=== PATIENT | male | born 1950 | race Caucasian/White ===

== ENCOUNTER 2019-01-16 04:04 | Emergency (ER) | payer OTHER, MEDICARE ==
[2019-01-16] MEDS ORDERED: DIPHENHYDRAMINE HCL 50 MG/ML VIAL ONE (04:21)
[2019-01-16] MEDS ORDERED: EPINEPHRINE INJ/PF 1 MG/1 ML AMPULE ONE ×2 (04:21→04:39)
[2019-01-16] MEDS ORDERED: FAMOTIDINE INJ/PF 20 MG/2 ML SDV IV ONE ×2 (04:21→06:00)
[2019-01-16] MEDS: METHYLPREDNISOLONE INJ 125 MG/2 ML SDV ONE ×2 (04:22→06:19)
[2019-01-16] MEDS: TRANEXAMIC ACID INJ/PF 1,000 MG/10 ML SDV IV ONE ×2 (04:25→06:19)
[2019-01-16] MEDS ORDERED: PROPOFOL 1,000 MG/100 ML INFUS..BTL IV ONE (04:42)
[2019-01-16] MEDS ORDERED: MIDAZOLAM 2 MG/2 ML INJ ONE (04:54)
[2019-01-16] MEDS ORDERED: KETAMINE HCL INJ 500 MG/10 ML VIAL ONE (05:37)
[2019-01-16] MEDS ORDERED: ETOMIDATE INJ/PF 20 MG/10 ML SDV IV ONE (05:37)
--- NOTE | 2019-01-16 05:41 | ER Document Report ---
ED General - General Chief Complaint: Allergic Reaction Stated Complaint: POSSIBLE ALLERGIC REACTION Time Seen by Provider: 01/16/19 05:00 Mode of Arrival: Ambulatory Information source: Patient, Relative, [facility] Records Notes: 68-year-old male with coronary artery disease, diabetes, hypertension (on lisinopril), hyperlipidemia presents via private vehicle from home with complaint of tongue swelling, difficulty swallowing. Patient reports using all of oil and Aurelia for lubrication for sex earlier today which is his only new exposure. Patient reports taking himself off of his lisinopril 4 days ago. - HPI Onset: This evening Onset/Duration: Gradual, Persistent Quality of pain: Burning - Burning pain under the tongue Severity: Mild Pain Level: 2 Associated symptoms: denies: Chest pain, Chills, Fever, Hurts to breath, Nausea, Shortness of breath, Sweating, Weakness Exacerbated by: Denies Relieved by: Denies Similar symptoms previously: No Recently seen / treated by doctor: No - Related Data Allergies/Adverse Reactions: iodine Allergy (Verified 01/16/19 06:28) Past Medical History - General Information source: Patient, Relative - Social History Smoking Status: Current Every Day Smoker Cigarette use (# per day): Yes - 30 Smoking Education Provided: Yes - Smoking cessation counseling was provided for 4 minutes at the bedside Frequency of alcohol use: Occasional Drug Abuse: None Lives with: Spouse/Significant other Family History: Reviewed & Not Pertinent Patient has suicidal ideation: No Patient has homicidal ideation: No - Past Medical History Cardiac Medical History: Reports: Hx Coronary Artery Disease, Hx Hypercholesterolemia, Hx Hypertension Endocrine Medical History: Reports: Hx Diabetes Mellitus Type 2 Review of Systems - Review of Systems Notes: REVIEW OF SYSTEMS: CONSTITUTIONAL : Denies fever, chills, or sweats. Denies recent illness. Denies weight loss, recent hospitalizations. EENT: Denies visual changes, eye pain. Denies sore throat, oral lesions, + difficulty swallowing. CARDIOVASCULAR: Denies chest pain. Denies palpitations. Denies lower extremity edema. RESPIRATORY: Denies cough. Denies shortness of breath, wheezing. GASTROINTESTINAL: Denies abdominal pain or distention. Denies nausea, vomiting, or diarrhea. Denies blood in vomitus, stools, or per rectum. Denies black, tarry stools. Denies constipation. GENITOURINARY: Denies difficulty urinating, painful urination, frequency, blood in urine, testicular pain or penile discharge. MUSCULOSKELETAL: Denies back or neck pain or stiffness. Denies joint pain or swelling. SKIN: Denies rash, lesions or sores. HEMATOLOGIC : Denies easy bruising or bleeding. LYMPHATIC: Denies swollen glands. NEUROLOGICAL: Denies confusion or altered mental status. Denies loss of consciousness. Denies dizziness or lightheadedness. Denies headache. Denies weakness or paralysis. Denies problems difficulty with ambulation, slurred speech. Denies sensory loss, numbness, or tingling. Denies seizures. PSYCHIATRIC: Denies anxiety or stress. Denies depression, suicidal ideation, or Physical Exam - Vital signs Vitals: Temp Pulse Resp BP Pulse Ox 98.4 F 73 19 124/70 95 01/16/19 04:01/16/19 04:11 01/16/19 04:11 01/16/19 04:01/16/19 04:11 - Notes Notes: PHYSICAL EXAMINATION: GENERAL: Well-appearing, well-nourished and in no acute distress. HEAD: Atraumatic, normocephalic. EYES: Pupils equal round and reactive to light, extraocular movements intact, sclera anicteric, conjunctiva are normal. ENT: Nares patent, oropharynx clear without exudates. Moist mucous membranes. Tongue swelling. No lip swelling. Handling secretions. NECK: Normal range of motion, supple without lymphadenopathy. No stridor LUNGS: Breath sounds clear to auscultation bilaterally and equal. No wheezes rales or rhonchi. No increased work of breathing HEART: Regular rate and rhythm without murmurs ABDOMEN: Soft, nontender, nondistended abdomen. No guarding, no rebound. No masses appreciated. Musculoskeletal: Normal range of motion, no pitting or edema. No cyanosis. NEUROLOGICAL: Cranial nerves grossly intact. Normal speech, normal gait. Normal sensory, motor exams PSYCH: Normal mood, normal affect. SKIN: Warm, Dry, normal turgor, no rashes or lesions noted. Course - Re-evaluation Re-evalutation: Temp Pulse Resp BP Pulse Ox 97.1 F 77 28 H 156/65 H 94 01/16/19 05:32 01/16/19 05:32 01/16/19 05:32 01/16/19 05:32 01/16/19 05:32 01/16/19 05:37 68-year-old male presents with lip swelling that occurred just prior to arrival. Patient reports a new exposure to Aurelia and all of oil which he used for sex earlier today. Patient does take lisinopril for his hypertension but reports that he stopped taking it 4 days ago because his blood pressure has been running low. Patient has had prior similar symptoms after eating fish. Vital signs reviewed upon arrival and patient is mildly hypertensive but afebrile and not hypoxic. Patient is handling secretions, has no increased work of breathing, wheezing or stridor. Patient did receive 3 doses of 0.3 mg of IM epinephrine as well as Benadryl, Solu-Medrol, Pepcid, TXA, FFP. Anesthesia was consulted as they have expressed their desire to be involved with angioedema cases. Dr. Michael is at the bedside and does not recommend intubation at this time. Patient reports that his difficulty swallowing has improved. Tongue swelling has impro gladys. 01/16/19 05:42 Patient resting comfortably on nasal cannula. 01/17/19 16:03 Patient signed out to Dr. Villa oncoming physician with plan to observe the patient in the emergency department for a total of 6 hours and discharge if no further swelling is noted. We have decided to do this due to the patient's rapid improvement after medication, and no ICU or IMCU bed availability. - Vital Signs Vital signs: Temp Pulse Resp BP Pulse Ox 97.1 F 77 25 H 152/87 H 95 01/16/19 05:32 01/16/19 05:32 01/16/19 10:31 01/16/19 10:31 01/16/19 10:31 Discharge - Discharge Clinical Impression: Angioedema Qualifiers: Encounter type: initial encounter Qualified Code(s): T78.3XXA - Angioneurotic edema, initial encounter Condition: Good Disposition: HOME, SELF-CARE Instructions: Angioedema ([facility]) Additional Instructions: Discontinue your lisinopril. Discontinue your Bactrim and inform your prescribing physician about your tongue swelling. Follow up with your -80 hours for further care or return to the ED IMMEDIATELY if symptoms worsen or you have any concerns. If you cannot afford to follow up with your primary care physician a list of low cost clinics have been provided at the end of your discharge papers as well. Most prescribed medications have multiple side effects. The safest thing to do is when filling your prescription speak to your pharmacist regarding possible interactions with your normal home medications and over the counter medications such as Ibuprofen, Tylenol, Benadryl. If you experience any symptoms that cause you discomfort or concern you should discontinue the medication immediately and return to the emergency room or call your primary care physician. Prescriptions: Epinephrine [Epipen 2-Jacques] 0.3 mg IJ ONCEP PRN #2 auto.injct PRN Reason: Forms: Elevated Blood Pressure, Smoking Cessation Education
[2019-01-16] MEDS ORDERED: DIPHENHYDRAMINE HCL 50 MG/ML VIAL IV ONE (06:00)
[2019-01-16] MEDS ORDERED: MIDAZOLAM 2 MG/2 ML INJ IV ONE (06:00)
[2019-01-16] MEDS ORDERED: METHYLPREDNISOLONE INJ 125 MG/2 ML SDV IV ONE (06:00)
[2019-01-16] MEDS ORDERED: TRANEXAMIC ACID INJ/PF 1,000 MG/10 ML SDV IV ONE (06:02)
[2019-01-16] MEDS ORDERED: EPINEPHRINE INJ/PF 1 MG/1 ML AMPULE IM ONE ×3 (06:02→06:04)
--- NOTE | 2019-01-16 07:01 | ER Document Report ---
ED Medical Screen (RME) - General Chief Complaint: Allergic Reaction Stated Complaint: POSSIBLE ALLERGIC REACTION Time Seen by Provider: 01/16/19 05:00 Mode of Arrival: Ambulatory - Related Data Allergies/Adverse Reactions: iodine Allergy (Verified 01/16/19 06:28) Past Medical History - Social History Cigarette use (# per day): Yes - 30 Frequency of alcohol use: Occasional Drug Abuse: None - Past Medical History Cardiac Medical History: Reports: Hx Coronary Artery Disease, Hx Hypercholesterolemia, Hx Hypertension Endocrine Medical History: Reports: Hx Diabetes Mellitus Type 2 Renal/ Medical History: Denies: Hx Peritoneal Dialysis Physical Exam - Vital signs Vitals: Temp Pulse Resp BP Pulse Ox 98.4 F 73 19 124/70 95 01/16/19 04:11 01/16/19 04:11 01/16/19 04:11 01/16/19 04:11 01/16/19 04:11 Course - Re-evaluation Re-evalutation: 01/16/19 07:00 Patient handed off by Dr. Huff. Isolated tongue angioedema, asymmetric. Seen by anesthesia and observed for 2 hours thus far with full complement of medications administered including TXA and FFP and epinephrine. Plan is to observe for a total of 6 hours in the emergency department, and discharge if no worsening symptoms. On my evaluation at 6:30 AM the patient is awake alert, his tongue swelling has improved he is able to swallow and breathe normally. - Vital Signs Vital signs: Temp Pulse Resp BP Pulse Ox 97.1 F 77 24 H 137/70 H 95 01/16/19 05:32 01/16/19 05:32 01/16/19 08:31 01/16/19 08:31 01/16/19 08:31 Doctor's Discharge - Discharge Clinical Impression: Angioedema Qualifiers: Encounter type: initial encounter Qualified Code(s): T78.3XXA - Angioneurotic edema, initial encounter Condition: Good Instructions: Angioedema ([facility]) Additional Instructions: Discontinue your lisinopril. Discontinue your Bactrim and inform your prescribing physician about your tongue swelling. Follow up with your [id number] hours for further care or return to the ED IMMEDIATELY if symptoms worsen or you have any concerns. If you cannot afford to follow up with your primary care physician a list of low cost clinics have been provided at the end of your discharge papers as well. Most prescribed medications have multiple side effects. The safest thing to do is when filling your prescription speak to your pharmacist regarding possible interactions with your normal home medications and over the counter medications such as Ibuprofen, Tylenol, Benadryl. If you experience any symptoms that cause you discomfort or concern you should discontinue the medication immediately and return to the emergency room or call your primary care physician. Prescriptions: Epinephrine [Epipen 2-Jacques] 0.3 mg IJ ONCEP PRN #2 auto.injct PRN Reason: Forms: Elevated Blood Pressure, Smoking Cessation Education
[2019-01-16 10:58] VITALS: BP 152/87
== END 2019-01-16 10:58 | disposition home or self-care (01) ==
LOC: ER 04:04
DX: T78.3XXA Angioneurotic edema, initial encounter (principal); R22.0 Localized swelling, mass and lump, head; R13.10 Dysphagia, unspecified; E11.9 Type 2 diabetes mellitus without complications; I25.10 Atherosclerotic heart disease of native coronary artery without angina pectoris; I10 Essential (primary) hypertension; T46.4X6A Underdosing of angiotensin-converting-enzyme inhibitors, initial encounter; Z91.128 Patient's intentional underdosing of medication regimen for other reason; Z91.14 Patient's other noncompliance with medication regimen; F17.210 Nicotine dependence, cigarettes, uncomplicated; Z71.6 Tobacco abuse counseling
CPT/HCPCS: 99285; 96372; 96374; 96375; 86900; 86901; 36415; 36430; P9017; J2250; J1200; J0171; J2930; S0028; J3490

== ENCOUNTER 2019-03-13 08:21 | Day surgery (SDC) | payer OTHER, MEDICARE ==
[~2019-03-13 08:21] MED LIST: PROPOFOL INJ 200 MG/20 ML VIAL IV ONE
[2019-03-13 10:29] VITALS: BP 121/86
--- NOTE | 2019-03-13 14:19 | Operative Report ---
Operative Report DATE OF SURGERY: 03/13/19 Operative Report: The risks, benefits and alternatives of the procedure including the risk of bleeding, perforation requiring surgery have been explained to the patient in detail and informed consent has been obtained. Patient is placed in a left, lateral decubital position. Timeout was called. Propofol medication is administered. Rectal examination is done which did not reveal any masses, tears or fissures. An Olympus videoscope was introduced into the patient's rectum. The scope was then carefully advanced all the way to the cecum. The cecum was identified by the usual anatomical landmarks including the ileocecal valve as well as the appendiceal office. Photodocumentation is obtained. Scope was then sequentially pulled back via the various segments of the colon including the ascending colon, hepatic flexure, transverse colon, splenic flexure, descending colon finding to the rectosigmoid portions of the colon. Retroflexion maneuvers performed. PREOPERATIVE DIAGNOSIS: Personal history of polyp POSTOPERATIVE DIAGNOSIS: Colon polyp removed via snare polypectomy and retrieved OPERATION: Colonoscopy with snare polypectomy SURGEON: GABRIEL HUDSON ANESTHESIA: LMAC TISSUE REMOVED OR ALTERED: As noted above. COMPLICATIONS: None. ESTIMATED BLOOD LOSS: None. INTRAOPERATIVE FINDINGS: As noted above. PROCEDURE: Patient tolerated the procedure well. No immediate postprocedure complications are noted. Patient is discharged in good condition. Discharge date 03/13/2019. Discharge diet: Regular. Discharge activity: Regular. 2 to 3-week follow-up to discuss findings. 5-year surveillance colonoscopy. Patient is instructed to call the office or proceed to the emergency room should there be any further problems or questions. Wait on the pathology.
== END 2019-03-13 10:57 | disposition home or self-care (01) ==
LOC: END 08:21
PROVIDERS: ATTEND Internal Medicine Gastroenterology
DX: K63.5 Polyp of colon (principal); Z86.010 Personal history of colon polyps; J44.9 Chronic obstructive pulmonary disease, unspecified; I10 Essential (primary) hypertension; E11.9 Type 2 diabetes mellitus without complications; E66.9 Obesity, unspecified; Z68.32 Body mass index [BMI] 32.0-32.9, adult
CPT/HCPCS: 45385; 82962; 88305 ×2; J2704; 811

== ENCOUNTER 2019-10-03 13:22 | Emergency (ER) | payer OTHER, MEDICARE ==
[2019-10-03] MEDS ORDERED: CEFAZOLIN 1 GM/D5W RTU 1 GM/50 ML RTUPB IV ONE (13:32)
[2019-10-03] MEDS ORDERED: FENTANYL CITRATE INJ/PF 100 MCG/2 ML AMPUL IV ONE (13:33)
--- NOTE | 2019-10-03 13:35 | ER Document Report ---
ED Medical Screen (RME) - General Chief Complaint: Laceration Stated Complaint: FINGER LACERATION Time Seen by Provider: 10/03/19 13:25 Mode of Arrival: Wheelchair Information source: Patient Notes: Patient was using a table saw prior to arrival in a board got caught. 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 Patient reports a history of diabetes hypertension and neuropathy. Patient does not take any medications at this time. Patient does report tetanus immunization is currently up-to-date. I have greeted and performed a rapid initial assessment of this patient. A comprehensive ED assessment and evaluation of the patient, analysis of test results and completion of the medical decision making process will be conducted by additional ED providers. TRAVEL OUTSIDE OF THE [place] IN LAST 30 DAYS: No - Related Data Allergies/Adverse Reactions: iodine Allergy (Verified 03/13/19 08:33) Past Medical History - Social History Chew tobacco use (# tins/day): No Frequency of alcohol use: None Drug Abuse: None - Past Medical History Cardiac Medical History: Reports: Hx Hypercholesterolemia, Hx Hypertension Denies: Hx Coronary Artery Disease, Hx Heart Attack Pulmonary Medical History: Reports: Hx Asthma - PRN INHALER Denies: Hx Bronchitis, Hx COPD, Hx Pneumonia Neurological Medical History: Denies: Hx Cerebrovascular Accident, Hx Seizures Endocrine Medical History: Reports: Hx Diabetes Mellitus Type 2 Renal/ Medical History: Denies: Hx Peritoneal Dialysis Musculoskeltal Medical History: Denies Hx Arthritis - Immunizations Hx Diphtheria, Pertussis, Tetanus Vaccination: Yes Physical Exam - Vital signs Vitals: Temp Pulse Resp BP Pulse Ox 98.6 F 75 18 174/88 H 97 10/03/19 13:27 10/03/19 13:27 10/03/19 13:27 10/03/19 13:27 10/03/19 13:27 - General General appearance: Alert Notes: 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 Bleeding controlled. Course - Vital Signs Vital signs: Temp Pulse Resp BP Pulse Ox 98.6 F 75 18 174/88 H 97 10/03/19 13:27 10/03/19 13:27 10/03/19 13:27 10/03/19 13:27 10/03/19 13:27
--- NOTE | 2019-10-03 13:59 | RADIOLOGY REPORT (SQ) ---
EXAM DESCRIPTION: HAND LEFT 3 VIEWS IMAGES COMPLETED DATE/TIME: 10/03/2019 1:50 pm REASON FOR STUDY: table saw injury, Near amp L 3 finger, lac 4/5 fin COMPARISON: None. EXAM PARAMETERS: NUMBER OF VIEWS: Three views. TECHNIQUE: AP, lateral and oblique radiographic images acquired of the left hand. LIMITATIONS: None. FINDINGS: MINERALIZATION: Normal. BONES: There is a comminuted fracture involving the the distal phalanx of the 3rd digit and middle ph alanx. Injury extends through the joint itself. The distal phalanx and distal aspect of the middle phalanx are displaced inferiorly and slightly laterally. JOINTS: No effusions. SOFT TISSUES: No soft tissue swelling. No foreign body. OTHER: No other significant finding. IMPRESSION: Probable compound, comminuted fracture involving the distal phalanx of the 3rd digit as well as the middle phalanx with dislocation of the DIP as described. TECHNICAL DOCUMENTATION: JOB ID: [id number] 2010 [employer]- All Rights Reserved Reading location - IP/workstation name: [email or web address]
--- NOTE | 2019-10-03 14:42 | ER Document Report ---
Entered by KONG YOUNG SCRIBE 10/03/19 1411 Acting as scribe for:KHURRAM MURILLO DO ED General - General Chief Complaint: Laceration Stated Complaint: FINGER LACERATION Time Seen by Provider: 10/03/19 13:25 Primary Care Provider: CYNTHIA,KAEL [Primary Care Provider] - Follow up as needed Mode of Arrival: Wheelchair Information source: Patient Notes: This 69-year-old male presents to the emergency department after a finger laceration that happened this morning. Patient explains that he was using a table saw and accidentally cut his fingers. Patient cut his 2nd and 3rd digit on his left hand. Patient is right-handed and his last tetanus shot was 8 months ago. TRAVEL OUTSIDE OF THE [place] IN LAST 30 DAYS: No - Related Data Allergies/Adverse Reactions: iodine Allergy (Verified 03/13/19 08:33) Past Medical History - General Information source: Patient - Social History Smoking Status: Never Smoker Cigarette use (# per day): No Chew tobacco use (# tins/day): No Frequency of alcohol use: None Drug Abuse: None Lives with: Family Family History: Reviewed & Not Pertinent Patient has suicidal ideation: No Patient has homicidal ideation: No - Past Medical History Cardiac Medical History: Reports: Hx Hypercholesterolemia, Hx Hypertension Pulmonary Medical History: Reports: Hx Asthma - PRN INHALER Endocrine Medical History: Reports: Hx Diabetes Mellitus Type 2 Psychiatric Medical History: Reports: Hx Bipolar Disorder, Hx Post Traumatic Stress Disorder Surgical Hx: Negative - Immunizations Hx Diphtheria, Pertussis, Tetanus Vaccination: Yes Review of Systems - Review of Systems Constitutional: No symptoms reported EENT: No symptoms reported Cardiovascular: No symptoms reported Respiratory: No symptoms reported Gastrointestinal: No symptoms reported Genitourinary: No symptoms reported Male Genitourinary: No symptoms reported Musculoskeletal: See HPI, Other - second and third on left hand pain Skin: See HPI, Other - Laceration Hematologic/Lymphatic: No symptoms reported Neurological/Psychological: No symptoms reported -: Yes All other systems reviewed and negative Physical Exam - Vital signs Vitals: Temp Pulse Resp BP Pulse Ox 98.6 F 75 18 174/88 H 97 10/03/19 13:27 10/03/19 13:27 10/03/19 13:27 10/03/19 13:27 10/03/19 13:27 - Notes Notes: Physical Exam: General: Alert, appears well. HEENT: Normocephalic. Atraumatic. PERRL. Extraocular movements intact. Oropharynx clear. Neck: Supple. Non-tender. Respiratory: No respiratory distress. Clear and equal breath sounds bilaterally. Cardiovascular: Regular rate and rhythm. Abdominal: Normal Inspection. Non-tender. No distension. Normal Bowel Sounds. Back: No gross abnormalities. Extremities: Moves all four extremities. Upper extremities: Superficial cut on the dorsal surface of 4th and fifth finger. Transverse deep partially amputated injury across his dorsal surface of his middle phalanx on his left hand. Tip still has good color and sensation is still in tact. Lower extremities: Normal inspection. No edema. Normal ROM. Neurological: Normal cognition. AAOx4. Normal speech. Psychological: Normal affect. Normal Mood. Skin: Warm. Dry. Normal color. Course - Re-evaluation Re-evalutation: 10/03/19 15:09 MDM 69 year old male with PTSD and bipolar disorder, dm is here after injury by table saw a short time ago. Tetanus is up to date. Given ancef and analgesia here and I have discussed with Dr. Fletcher who will see. 10/03/19 15:30 Dr. Fletcher is in the ED evaluating the pt and we have had the pts come to visit with him due to his anxiety. - Vital Signs Vital signs: Temp Pulse Resp BP Pulse Ox 98.6 F 75 18 174/88 H 97 10/03/19 13:27 10/03/19 13:27 10/03/19 13:27 10/03/19 13:27 10/03/19 13:27 Discharge - Discharge Clinical Impression: Open fracture Left hand fracture Qualifiers: Encounter type: initial encounter Fracture type: open Qualified Code(s): S62.92XB - Unspecified fracture of left wrist and hand, initial encounter for open fracture Phalanx, distal fracture of finger Qualifiers: Encounter type: initial encounter Finger: middle finger Fracture type: open Fracture alignment: displaced Laterality: left Qualified Code(s): S62.633B - Displaced fracture of distal phalanx of left middle finger, initial encounter for open fracture Condition: Good Disposition: HOME, SELF-CARE Instructions: Prophylactic Antibiotic ([facility]) Additional Instructions: Follow up with Dr. Fletcher as directed. Call his office and see him next Thursday 10/12 Take your medicine as directed. Please return here for redness, streaking, other problems or other concerns. Prescriptions: Cephalexin Monohydrate [Keflex 500 mg Capsule] 500 mg PO TID #30 capsule Referrals: [facility] [Primary Care Provider] - Follow up as needed EUGENE FLETCHER DO [ACTIVE STAFF] - 10/13/19 I personally performed the services described in the documentation, reviewed and edited the documentation which was dictated to the scribe in my presence, and it accurately records my words and actions.
[2019-10-03] MEDS ORDERED: LIDOCAINE 1%/EPINEPHRINE INJ 20 ML VIAL INJ ONE (14:57)
[2019-10-03] MEDS ORDERED: LIDOCAINE 1% INJ (10 MG/ML) 10 ML MDV INJ ONE (14:57)
[2019-10-03] MEDS ORDERED: MORPHINE SULFATE 10 MG/ML INJ IV ONE (14:57)
[2019-10-03] MEDS ORDERED: ONDANSETRON HCL INJ/PF 4 MG/2 ML SDV IV ONE (14:58)
[2019-10-03] MEDS ORDERED: LORAZEPAM INJ 2 MG/1 ML VIAL IV ONE (15:03)
[2019-10-03] MEDS ORDERED: LIDOCAINE 1% INJ-PF (10 MG/ML) 30 ML SDV ONE (15:30)
[2019-10-03] MEDS ORDERED: HYDROCODONE/ACETAMINOPHEN 5-325 MG (6 TAB/ER DISP) PO PRN (15:36)
--- NOTE | 2019-10-03 16:38 | RADIOLOGY REPORT (SQ) ---
EXAM DESCRIPTION: FINGER LEFT; NO CHG FLUORO IMAGES COMPLETED DATE/TIME: 10/03/2019 3:24 pm REASON FOR STUDY: PERC PINNING 3RD DIGIT COMPARISON: Left hand radiograph same date. FLUOROSCOPY TIME: 2 images saved to PACS. RADIATION DOSE: Total fluoroscopic time 0.7 seconds. TECHNIQUE: Intra-operative images acquired during surgical procedure to evaluate progress. NUMBER OF IMAGES: 2 Total fluoroscopic time 0.7 seconds. LIMITATIONS: None. FINDINGS: Two views of the left 4th digit demonstrate percutaneous pin fixation of the distal and mi ddle phalanx with near anatomic alignment of the fracture fragments. IMPRESSION: IMAGE(S) OBTAINED DURING PROCEDURE. COMMENT: Quality ID [id number]: Final reports for procedures using fluoroscopy that document radiation exp osure indices, or exposure time and number of fluorographic images (if radiation exposure indices are not available) Please consult full operative report of the attending physician for description of the procedure. TECHNICAL DOCUMENTATION: JOB ID: [id number] 2010 [employer]- All Rights Reserved Reading location - IP/workstation name: [email or web address]
--- NOTE | 2019-10-03 16:38 | RADIOLOGY REPORT (SQ) ---
EXAM DESCRIPTION: FINGER LEFT; NO CHG FLUORO IMAGES COMPLETED DATE/TIME: 10/03/2019 3:24 pm REASON FOR STUDY: PERC PINNING 3RD DIGIT COMPARISON: Left hand radiograph same date. FLUOROSCOPY TIME: 2 images saved to PACS. RADIATION DOSE: Total fluoroscopic time 0.7 seconds. TECHNIQUE: Intra-operative images acquired during surgical procedure to evaluate progress. NUMBER OF IMAGES: 2 Total fluoroscopic time 0.7 seconds. LIMITATIONS: None. FINDINGS: Two views of the left 4th digit demonstrate percutaneous pin fixation of the distal and mi ddle phalanx with near anatomic alignment of the fracture fragments. IMPRESSION: IMAGE(S) OBTAINED DURING PROCEDURE. COMMENT: Quality ID [id number]: Final reports for procedures using fluoroscopy that document radiation exp osure indices, or exposure time and number of fluorographic images (if radiation exposure indices are not available) Please consult full operative report of the attending physician for description of the procedure. TECHNICAL DOCUMENTATION: JOB ID: [id number] 2010 [employer]- All Rights Reserved Reading location - IP/workstation name: [email or web address]
--- NOTE | 2019-10-03 16:45 | PDOC CONSULTATION ---
Consultation Consult Date: 10/03/19 Attending physician:: KHURRAM MURILLO Provider Consulted: EUGENE FLETCHER Consult reason:: finger laceration History of Present Illness Admission Date/PCP: [facility] History of Present Illness: SANGEETA CABELLO JR is a 69 year old male who was at home working with his table saw when he inadvertently slipped cutting his left middle finger along with his ring and small finger. Patient states he had significant bleeding and notable pain at the time of injury. Was brought to emergency room x-rays confirmed open fracture. Patient states his pain has improved with morphine. Notes numbness along the portion of the digit. Does have intact motion. Denies fever chills or sweats. Past Medical History Cardiac Medical History: Reports: Hyperlipidema, Hypertension Denies: Coronary Artery Disease, Myocardial Infarction Pulmonary Medical History: Reports: Asthma - PRN INHALER Denies: Bronchitis, Chronic Obstructive Pulmonary Disease (COPD), Pneumonia Neurological Medical History: Denies: Seizures Endocrine Medical History: Reports: Diabetes Mellitus Type 2 Musculoskeltal Medical History: Denies: Arthritis Psychiatric Medical History: Reports: Bipolar Disorder, Post Traumatic Stress Disorder Hematology: Denies: Anemia Social History Lives with: Family Smoking Status: Never Smoker Electronic Cigarette use?: No Family History Family History: Reviewed & Not Pertinent Parental Family History Reviewed: No Children Family History Reviewed: No Sibling(s) Family History Reviewed.: No Medication/Allergy Home Medications: Insulin Glargine,Hum.rec.anlog [Lantus Insulin 100 Unit/1 ml 10 ml] 32 unit SUBCUT DAILY 03/13/19 Lisinopril [Zestril] 20 mg PO DAILY 03/13/19 Metformin HCl 1,000 mg PO DAILY 03/13/19 Amoxicillin/Potassium Clav [Amox-Clav 875-125 mg Tablet] 1 each PO BID #20 tablet 10/03/19 Cephalexin Monohydrate [Keflex 500 mg Capsule] 500 mg PO TID #30 capsule 10/03/19 Allergies/Adverse Reactions: iodine Allergy (Verified 03/13/19 08:33) Review of Systems Constitutional: ABSENT: chills, fever(s), headache(s), weight gain, weight loss Eyes: ABSENT: visual disturbances Ears: ABSENT: hearing changes Cardiovascular: ABSENT: chest pain, dyspnea on exertion, edema, orthropnea, palpitations Respiratory: ABSENT: cough, hemoptysis Gastrointestinal: ABSENT: abdominal pain, constipation, diarrhea, hematemesis, hematochezia, nausea, vomiting Genitourinary: ABSENT: dysuria, hematuria Musculoskeletal: PRESENT: as per HPI Integumentary: ABSENT: rash, wounds Neurological: ABSENT: abnormal gait, abnormal speech, confusion, dizziness, focal weakness, syncope Psychiatric: ABSENT: anxiety, depression, homidical ideation, suicidal ideation Endocrine: ABSENT: cold intolerance, heat intolerance, menstrual abnormalities, polydipsia, polyuria Hematologic/Lymphatic: ABSENT: easy bleeding, easy bruising, lymphadenopathy Physical Exam Vital Signs: Temp Pulse Resp BP Pulse Ox 98.6 F 75 18 174/88 H 97 10/03/19 13:27 10/03/19 13:27 10/03/19 13:27 10/03/19 13:27 10/03/19 13:27 Intake & Output 10/02/19 10/03/19 10/04/19 06:59 06:59 06:59 Intake Total 50 Balance 50 Weight 102.058 kg General appearance: PRESENT: no acute distress, well-developed, well-nourished Head exam: PRESENT: atraumatic, normocephalic Eye exam: PRESENT: conjunctiva pink, EOMI, PERRLA. ABSENT: scleral icterus Ear exam: PRESENT: normal external ear exam Mouth exam: PRESENT: moist, tongue midline Neck exam: PRESENT: full ROM. ABSENT: carotid bruit, JVD, lymphadenopathy, thyromegaly Cardiovascular exam: PRESENT: RRR. ABSENT: diastolic murmur, rubs, systolic murmur Pulses: PRESENT: normal dorsalis pedis pul, +2 pedal pulses bilateral Vascular exam: PRESENT: normal capillary refill GI/Abdominal exam: PRESENT: normal bowel sounds, soft. ABSENT: distended, guarding, mass, organolmegaly, rebound, tenderness Rectal exam: PRESENT: deferred Musculoskeletal exam: PRESENT: other - Left hand: Middle finger oblique lacerat ion extending from the dorsal aspect of the DIP joint ulnarly to involve the volar ulnar aspect extending to the distal pulp. Intact capillary refill with normal skin turgor. Patient lacks sensation along the ulnar digital nerve distribution. Intact to sharp touch to the radial digital nerve distribution. Involvement of the underlying nail plate. Intact flexion of the DIP/PIP joint however limited secondary to pain. Oblique superficial lacerations of the ring and small finger full flexion/extension of the DIP/PIP/MP joints. Neurological exam: PRESENT: alert, awake, oriented to person, oriented to place, oriented to time, oriented to situation, CN II-XII grossly intact. ABSENT: motor sensory deficit Psychiatric exam: PRESENT: appropriate affect, normal mood. ABSENT: homicidal ideation, suicidal ideation Skin exam: PRESENT: dry, intact, warm. ABSENT: cyanosis, rash Results Impressions: Finger X-Ray 10/03/19 00:00 IMPRESSION: IMAGE(S) OBTAINED DURING PROCEDURE. Fluoroscopy 10/03/19 00:00 IMPRESSION: IMAGE(S) OBTAINED DURING PROCEDURE. Hand X-Ray 10/03/19 13:32 IMPRESSION: Probable compound, comminuted fracture involving the distal phalanx of the 3rd digit as well as the middle phalanx with dislocation of the DIP as described. Status: Image reviewed by me - I have reviewed patient's radiographs demonstrate comminuted fracture of the middle DIP joint with bone loss and significant intra-articular comminution. Assessment & Plan - Diagnosis (1) Open fracture Is this a current diagnosis for this admission?: Yes (2) Phalanx, distal fracture of finger Qualifiers: Encounter type: initial encounter Finger: middle finger Fracture type: open Fracture alignment: displaced Laterality: left Qualified Code(s): S62.633B - Displaced fracture of distal phalanx of left middle finger, initial encounter for open fracture Is this a current diagnosis for this admission?: Yes Plan: Patient sustained open fracture of the middle digit at the DIP joint with significant articular involvement there is intact vascularity and sensation along the radial aspect of the digit along with intact flexion thus I feel digit is possibly viable. However patient is increased risk of infection and ischemia secondary to his history of diabetes and tobacco use. We also discussed alternatives to operative treatment including amputation at the level of the middle phalanx after discussing risks and benefits decision was made to proceed with operative intervention in the emergency room which includes irrigation debridement left middle finger open fracture with open reduction internal fixation middle finger. Risk and benefits have been explained risk including infection, postoperative pain, postoperative stiffness, ischemia patient has verbalized understanding consented for surgical procedure. See additional op note.
--- NOTE | 2019-10-03 16:51 | Operative Report ---
Operative Report DATE OF SURGERY: 10/03/19 PREOPERATIVE DIAGNOSIS: Open fracture left middle finger status post table saw injury POSTOPERATIVE DIAGNOSIS: Open fracture left middle finger distal phalanx/middle phalanx OPERATION: 1. Irrigation debridement left middle finger open fracture distal phalanx/middle phalanx. 2. Open reduction to fixation with DIP joint transarticular pinning open fracture left middle finger distal phalanx/middle phalanx SURGEON: EUGENE FLETCHER ANESTHESIA: Local COMPLICATIONS: None ESTIMATED BLOOD LOSS: Minimal PROCEDURE: Procedure in detail: Patient was seen in the emergency room after table saw injury. Hand was prepped with Betadine and digital block performed with 20 cc of 1% lidocaine to the middle ring and small finger. Exploration indicated intact flexor tendon with comminuted fracture of the articular surface at that point we discussed treatment options including amputation versus operative intervention in the emergency room after discussing these options decision was made to proceed with operative treatment. Digit was copiously irrigated with 1 L of normal saline and prepped with Betadin e. Hand was draped in a sterile fashion. [place] drain was placed along the middle finger to act as a digital tourniquet. Nonviable tissue including portions of the distal phalanx/middle phalanx was excised along with underlying skin and frayed extensor tendon. Wound was once again irrigated with normal saline. DIP joint was then realigned and a 0.045 K wire was placed trans-or acutely acro ss the DIP joint. K wire was cut below the skin. The other half of the 0.045 K wire was then placed across the DIP joint to provide further stability against rotation. C arm fluoroscopy was obtained confirming appropriate alignment of the DIP joint. K wires were cut below the skin of the distal pulp. Wound was irrigated with normal saline once again. Complex closure was performed by removing nonviable skin to ensure adequate clean closure of the open wound and digit. There was mild soft tissue loss along the ulnar aspect and volar aspect but complete coverage and closure was successful without evidence of exposed bone. Tourniquet was removed. Patient had intact peripheral perfusion with normal skin turgor. Wounds were dressed with Xeroform and a soft dressing. Sponge, instrument and needle counts were correct. There was no Intra-Op complications patient tied well and was stable for discharge to home. Postoperative plan: Patient follow-up in the office in 10 days at which point we will proceed with radiographs and wound check. Patient may begin daily dressing changes to the digits. May begin PIP joint range of motion. Patient will also be started on Augmentin prophylactically given the open nature of his injury. Patient is to call the office with any questions or concerns. Patient was explained postoperative instructions he verbalized understanding and will follow-up as scheduled.
[2019-10-03 17:01] VITALS: BP 150/77
== END 2019-10-03 17:00 | disposition home or self-care (01) ==
LOC: ER 13:22
DX: S62.633B Displaced fracture of distal phalanx of left middle finger, initial encounter for open fracture (principal); S61.215A Laceration without foreign body of left ring finger without damage to nail, initial encounter; S61.217A Laceration without foreign body of left little finger without damage to nail, initial encounter; W29.8XXA Contact with other powered hand tools and household machinery, initial encounter; E78.00 Pure hypercholesterolemia, unspecified; I10 Essential (primary) hypertension; E11.9 Type 2 diabetes mellitus without complications; J45.909 Unspecified asthma, uncomplicated; F17.200 Nicotine dependence, unspecified, uncomplicated
CPT/HCPCS: 99284; 96375; 96365; 73140; 73130; 26746 ×2; J0690; J3010; J3490; J2270; J2060; J2405